=== PATIENT | male | born 1940 | race Caucasian/White ===

== ENCOUNTER → 2018-02-10 | Outpatient (CLI) | payer OTHER ==
--- NOTE | 2018-02-10 18:00 | Diagnostic Imaging Report ---
PROCEDURE:X-RAY MODIFIED BARIUM SWALLOW COMPARISON:None. INDICATIONS:RULE OUT ASPIRATION DISCUSSION:Fluoroscopic examination was performed in conjunction with speech pathology, during swallowing of a variety of thin and thick liquid consistencies. Fluoroscopy time: 1:08 min Cumulative air kerma: 2.2 mGy CONCLUSION:No penetration or aspiration. Please see the report from speech pathology for complete details. Dictated by: Giuseppe Culver M.D. on 02/10/2018 at 18:03 Electronically approved by: Giuseppe Culver M.D. on 02/10/2018 at 18:03
== END ==
LOC: DX 10:01
PROVIDERS: ATTEND Internal Medicine Critical Care Medicine
DX: J84.113 Idiopathic non-specific interstitial pneumonitis (principal); J44.9 Chronic obstructive pulmonary disease, unspecified
CPT/HCPCS: 74230; 92611; G8996; G8997; G8998